=== PATIENT | female | born 1960 ===

== ENCOUNTER 2019-08-28 15:42 | Outpatient (REF) | payer SELFPAY | END 2019-08-28 16:02 | LOC: NCHCN 15:42 | PROVIDERS: Visit Provider Nurse Practitioner Family | DX: R39.9 Unspecified symptoms and signs involving the genitourinary system (principal) | CPT/HCPCS: 87086 ==

== ENCOUNTER 2020-09-07 14:38 | Outpatient (REF) | payer SELFPAY ==
[2020-09-11 03:46] LABS: SARS-CoV-2 RNA Undetected (Undetected); SARS-CoV-2 Specimen Source Nasal
== END 2020-09-07 14:58 ==
LOC: NCHCN 14:38
PROVIDERS: PCP Nurse Practitioner Family; Visit Provider Nurse Practitioner Family
DX: Z20.828 Contact with and (suspected) exposure to other viral communicable diseases (principal)
CPT/HCPCS: U0003

== ENCOUNTER 2021-01-04 12:02 | Outpatient (REF) | payer SELFPAY ==
[2021-01-06 13:08] LABS: COVID-19 RT-PCR UVMMC Result Negative (Negative)
== END 2021-01-04 12:03 | disposition home or self-care (01) ==
LOC: NCHCN 12:02
PROVIDERS: PCP Nurse Practitioner Family; Visit Provider Nurse Practitioner Family
DX: Z20.822 Contact with and (suspected) exposure to COVID-19 (principal)
CPT/HCPCS: U0003

== ENCOUNTER 2021-06-23 15:21 | Outpatient (REF) | payer OTHER, SELFPAY ==
[2021-06-23 20:27] LABS: Absolute Basophil Count 0.02 10^3/uL (0.0-0.2); Absolute Eosinophil Count 0.09 10^3/uL (0.0-0.7); Absolute Lymphocyte Count 1.83 10^3/uL (1.2-3.4); Absolute Monocyte Count 0.42 10^3/uL (0.1-0.8); Absolute Neutrophil Count 2.86 10^3/uL (1.2-6.7); Basophils % 0.4; Eosinophils % 1.7; HCT 41.2 % (36.0-46.0); HGB 13.1 g/dL (11.2-15.7); Lymphocytes % 35.1; MCHC 31.8 % (32.0-36.0); MCV 94.3 fL (80-95); MPV 9.6 fL (8.0-11.0); Neutrophils % 54.8; Nucleated RBC 0 %; Platelet Count 256 10^3/uL (130-400); RBC 4.37 10^6/uL (3.93-5.22); RDW 13.6 % (11.7-14.6); RDW-SD 47.5 fL; WBC 5.22 10^3/uL (4.4-10.8)
[2021-06-23 21:05] LABS: Iron 92 ug/dL (50-170); Total Iron Binding Capacity 339 ug/dL (250-450); Transferrin Sat 27 % (15-50)
[2021-06-23 21:18] LABS: ALT 30 U/L (14-59); AST 21 U/L (15-37); Albumin 4.3 g/dL (3.4-5.0); Alkaline Phosphatase 89 U/L (46-116); Anion Gap 10.9 mmol/L (3-11); BUN 20 mg/dL (7-18); Bilirubin, Total 0.4 mg/dL (0.2-1.0); CO2 28.1 mmol/L (21.0-32.0); CREATININE 0.9 mg/dL (0.55-1.02); Calcium 9.4 mg/dL (8.5-10.1); Calculated LDL 186 mg/dL (<100); Chloride 103 mmol/L (98-107); Cholesterol 266 mg/dL (<200); Ferritin 105 ng/mL (8-252); Glucose 98 mg/dL (74-106); HDL Cholesterol 66 mg/dL (40-60); Potassium 5.3 mmol/L (3.5-5.1); Sodium 142 mmol/L (136-145); TSH (W/Ref FT4) 1.79 uIU/mL (0.36-3.74); Total Protein 8.4 g/dL (6.4-8.2); Triglyceride 72 mg/dL (<150)
== END 2021-06-23 15:22 | disposition home or self-care (01) ==
LOC: NCHCN 15:21
PROVIDERS: PCP Nurse Practitioner Family; Visit Provider Nurse Practitioner Family
DX: R03.0 Elevated blood-pressure reading, without diagnosis of hypertension (principal); R51.9 Headache, unspecified; J30.9 Allergic rhinitis, unspecified; R42 Dizziness and giddiness; M54.2 Cervicalgia; R00.2 Palpitations; R53.83 Other fatigue; R39.9 Unspecified symptoms and signs involving the genitourinary system
CPT/HCPCS: 80053; 80061; 82728; 83540; 83550; 84443; 85025

== ENCOUNTER 2021-07-19 11:09 | Outpatient (REF) | payer OTHER, SELFPAY ==
[2021-07-20 02:09] LABS: COVID-19 RT-PCR UVMMC Result Negative (Negative)
== END 2021-07-19 11:10 | disposition home or self-care (01) ==
LOC: NCHCN 11:09
PROVIDERS: PCP Nurse Practitioner Family; Visit Provider Nurse Practitioner Family
DX: Z20.822 Contact with and (suspected) exposure to COVID-19 (principal)
CPT/HCPCS: U0003